=== PATIENT | female | born 1965 | race Hispanic/Latino ===

== ENCOUNTER 2018-06-05 08:47 | Day surgery (SDC) | payer BC ==
[~2018-06-05] VITALS: Ht 139.7 cm; Wt 46.7 kg
[2018-06-05 11:23] VITALS: BP 137/84
== END 2018-06-05 11:45 | disposition home or self-care (01) | DRG 951 ==
LOC: ENDO 08:47
PROVIDERS: ATTEND Surgery
PROC: 0DJD8ZZ Inspection of Lower Intestinal Tract, Via Natural or Artificial Opening Endoscopic (ICD-10-PCS; principal; 2018-06-05)
DX: Z12.11 Encounter for screening for malignant neoplasm of colon (principal)

== ENCOUNTER → 2018-11-11 | Outpatient (REF) | payer BC | END | disposition home or self-care (01) | DRG 761 | LOC: BD 09:10 | PROVIDERS: ATTEND Nurse Practitioner Family | DX: N95.1 Menopausal and female climacteric states (principal) ==

== ENCOUNTER 2021-09-30 15:41 | Emergency (ER) | payer BC ==
[~2021-09-30] VITALS: Ht 139.7 cm; Wt 60.0 kg
[2021-09-30 17:50] VITALS: BP 121/76
[2021-09-30] MEDS ORDERED: HYDROCO/APAP1 TA9 PO (18:06)
== END 2021-09-30 18:50 | disposition home or self-care (01) | DRG 605 ==
LOC: ED 15:41
PROC: 0HQ0XZZ Repair Scalp Skin, External Approach (ICD-10-PCS; principal; 2021-09-30)
DX: S01.01XA Laceration without foreign body of scalp, initial encounter (principal); S16.1XXA Strain of muscle, fascia and tendon at neck level, initial encounter; S20.229A Contusion of unspecified back wall of thorax, initial encounter; W11.XXXA Fall on and from ladder, initial encounter; Y92.008 Other place in unspecified non-institutional (private) residence as the place of occurrence of the external cause

== ENCOUNTER 2021-10-11 10:46 | Emergency (ER) | payer BC ==
[~2021-10-11] VITALS: Ht 139.7 cm; Wt 50.0 kg
[~2021-10-11 10:46] MED LIST: HYDROCO/APAP1 TA9 PO
[2021-10-11 12:07] VITALS: BP 128/60
== END 2021-10-11 12:07 | disposition home or self-care (01) | DRG 950 ==
LOC: ED 10:46
DX: S01.01XD Laceration without foreign body of scalp, subsequent encounter (principal); X58.XXXD Exposure to other specified factors, subsequent encounter